=== PATIENT | male | born 1955 | race Caucasian/White ===

== ENCOUNTER → 2020-12-02 | Outpatient (CLI) | payer OTHER ==
[~2020-12-02] MED LIST: AZOR 10-20 MG1 EACH PO; HYDROCHLOROTHIA25 M1 PO; IBUPROFEN 200200 M1 PO; MEDROLDOSEPACK PO; NORCO 5-325 TA1 EACH PO; ROBAXIN500 MG PO; VALIUM5 MG PO
== END ==
LOC: SJCVCIMAG 10:08
PROVIDERS: ATTEND Internal Medicine
DX: I11.9 Hypertensive heart disease without heart failure (principal); R53.83 Other fatigue; I77.89 Other specified disorders of arteries and arterioles; R00.2 Palpitations